=== PATIENT | male | born 2000 | race Caucasian/White ===

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

== ENCOUNTER 2024-09-02 08:32 | Emergency (ER) | payer OTHER ==
[~2024-09-02] VITALS: Ht 172.7 cm; Wt 77.3 kg
[2024-09-02 08:35] VITALS: BP 134/74; PULSE 68; RESP 20; TEMP 98.2; O2SAT 99
[2024-09-02] MEDS ORDERED: CYCL-448 PO (08:58)
[2024-09-02] MEDS: ACETAMINOPHEN 500 MG TABLET PO ONE (09:44)
[2024-09-02] MEDS: LIDOCAINE 5% TRANSDERMAL PATCH TD ONE (09:45)
== END 2024-09-02 10:10 | disposition home or self-care (01) ==
LOC: EMS 08:37
DX: S39.012A Strain of muscle, fascia and tendon of lower back, initial encounter (principal); F12.90 Cannabis use, unspecified, uncomplicated; Z71.6 Tobacco abuse counseling; X50.0XXA Overexertion from strenuous movement or load, initial encounter; Y93.89 Activity, other specified; Y92.89 Other specified places as the place of occurrence of the external cause; Y99.8 Other external cause status
CPT/HCPCS: 99283